=== PATIENT | male | born 1975 | race Caucasian/White ===

== ENCOUNTER 2024-11-17 05:24 | Emergency (ER) | payer OTHER, SELFPAY ==
[2024-11-17 05:26] VITALS: PULSE 59; RESP 18; TEMP 36.6; O2SAT 95
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
[2024-11-17] MEDS: Ketorolac 15 MG/ML VIAL IVP (05:45)
[2024-11-17 05:46] LABS: HCT 45.6 % (40.0-50.0); HGB 15.7 g/dL (13.5-17.5); MCH 31.3 pg (27.0-33.0); MCHC 34.4 % (32.0-36.0); MCV 91 fL (80-95); MPV 11.0 fL (8.0-11.0); Platelet Count 168 10^3/uL (130-400); RBC 5.01 10^6/uL (4.36-5.78); RDW 13.2 % (11.8-14.1); RDW-SD 44.2 fL; WBC 4.71 10^3/uL (4.4-10.8)
[2024-11-17] MEDS: Lidocaine 5% Patch 1 PATCH TP (05:46)
[2024-11-17] MEDS: Methocarbamol 500 MG TAB 1000 MG PO (05:46)
[2024-11-17 06:02] LABS: ALT 31 U/L (16-63); AST 15 U/L (15-37); Albumin 3.9 g/dL (3.4-5.0); Alkaline Phosphatase 114 U/L (46-116); Anion Gap 5.6 mmol/L (3-11); BUN 26 mg/dL (7-18); Bilirubin, Total 0.5 mg/dL (0.2-1.0); CO2 29.4 mmol/L (21.0-32.0); Calcium 8.9 mg/dL (8.5-10.1); Chloride 104 mmol/L (98-107); Estimated GFR 82.29 (mL/min/1.73m2); Glucose 142 mg/dL (74-106); Potassium 4.0 mmol/L (3.5-5.1); Sodium 139 mmol/L (136-145); Total Protein 7.2 g/dL (6.4-8.2)
[2024-11-17] MEDS: Normal Saline - Diluent 50 ML VIAL IJ (06:10)
[2024-11-17] MEDS: Omnipaque 350 MG/ML 100 ML BTL IJ (06:10)
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
[2024-11-17 06:23] LABS: Glucose Negative (Negative)
[2024-11-17 06:38] LABS: C & S Indicated? No; WBC 0-2 HPF (0-5)
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
[2024-11-17 07:11] VITALS: BP 191/120; PULSE 60; RESP 16; O2SAT 94
== END 2024-11-17 07:23 | disposition home or self-care (01) ==
PROVIDERS: Emergency Provider Emergency Medicine; PCP Family Medicine
DX: S39.012A Strain of muscle, fascia and tendon of lower back, initial encounter (principal); V40.5XXA Car driver injured in collision with pedestrian or animal in traffic accident, initial encounter
CPT/HCPCS: 99284; 99285; 96374; 80053; 85027; 74177; 81003; 81015; J1885; J3490